=== PATIENT | female | born 1945 | race Caucasian/White ===

== ENCOUNTER 2017-07-09 18:21 | Inpatient (IN) | payer OTHER ==
[2017-07-09 21:51] LABS: BASOPHILS % (AUTO) 0.3 % (0.2-1.0); EOSINOPHILS # (AUTO) 0.8 x10^3/uL (0.0-0.2); EOSINOPHILS % (AUTO) 8.4 % (0.9-2.9); HEMATOCRIT 27.9 % (36.0-47.0); HEMOGLOBIN 9.8 g/dL (12.0-16.0); LYMPHOCYTES # (AUTO) 1.1 X10^3/uL (1.3-2.9); LYMPHOCYTES % (AUTO) 10.8 % (21.0-51.0); MEAN CORPUSCULAR HEMOGLOBIN 33.3 pg (27.0-34.0); MEAN CORPUSCULAR HGB CONC 35.1 g/dL (33.0-35.0); MEAN CORPUSCULAR VOLUME 94.9 fL (80.0-100.0); MEAN PLATELET VOLUME 7.2 fL (7.4-11.0); MONOCYTES # (AUTO) 0.7 x10^3/uL (0.3-0.8); MONOCYTES % (AUTO) 6.7 % (0.0-13.0); NEUTROPHILS # (AUTO) 7.4 x10^3/uL (2.2-4.8); NEUTROPHILS % (AUTO) 73.8 % (42.0-75.0); PLATELET COUNT 322 X10^3/uL (150.0-450.0); RED BLOOD COUNT 2.94 X10^6/uL (3.5-5.4); RED CELL DISTRIBUTION WIDTH 15.7 % (11.6-16.5)
[2017-07-09] MEDS: NS 1000 ML 1,000 ML IV SCH (22:15)
--- NOTE | 2017-07-09 22:22 | RAD ---
HISTORY: Acute shortness of breath. Study: Portable chest. Comparison: None. Findings: Tracheostomy tube that appears to be in good position. Right chest Port-A-Cath whose tip overlies the cavoatrial junction. The cardiac silhouette is unremarkable. No obvious focal consolidation, pleura l effusion, or pneumothorax. The bony thorax is unremarkable. IMPRESSION: No acute cardiopulmonary disease. Reported By:
[2017-07-09] MEDS ORDERED: MILK OF MAGNESIA PO PRN (22:24)
[2017-07-09] MEDS: NORCO 7.5/325 MG TAB PO PRN (22:30)
[2017-07-09 22:38] LABS: ALBUMIN 3.1 g/dL (3.4-5.0); CARBON DIOXIDE 21.6 mmol/L (21-32); COR CA(FOR HYPOALB) 8.7 mg/dL (8.5-10.1); CREATININE 5.21 mg/dL (0.55-1.02); TOTAL PROTEIN 9.1 g/dL (6.4-8.2)
[2017-07-09] MEDS ORDERED: STERILE WATER IRRIGATION IR ONE (23:07)
[2017-07-09 23:56] VITALS: BMI 29.5
[2017-07-10] MEDS: VISTARIL PO PRN ×3 (00:50→21:55)
[2017-07-10] MEDS ORDERED: HumuLIN R SUBCUT PRN (02:50)
[2017-07-10 04:13] LABS: BILIRUBIN,URINE NEGATIVE (NEGATIVE); BLOOD/HEMOGLOBIN,URINE 3+ (NEGATIVE); GLUCOSE, URINE NEGATIVE (NEGATIVE); KETONES,URINE NEGATIVE (NEGATIVE); LEUKOCYTE ESTERASE ,URINE 3+ (NEGATIVE); NITRITES,URINE NEGATIVE (NEGATIVE); PROTEIN,URINE 2+ (NEGATIVE); UROBILINOGEN,URINE NORMAL (NORMAL)
[2017-07-10 04:29] LABS: APPEARANCE,URINE CLOUDY (CLEAR); BACTERIA,URINE 3+ /HPF (NEGATIVE); COLOR,URINE YELLOW (YELLOW); RBC,URINE TNTC /HPF (NONE SEEN); SQUAMOUS EPITHELIAL CELL,UR MODERATE /HPF (NEGATIVE)
[2017-07-10] MEDS: NS 1000 ML 1,000 ML IV SCH ×3 (05:15→21:54)
[2017-07-10] MEDS: NYSTATIN POWDER TOP SCH ×3 (05:29→21:54)
[2017-07-10] MEDS ORDERED: NS 1000 ML 1,000 ML IV SCH ×2 (06:00)
[2017-07-10 06:39] LABS: BASOPHILS % (AUTO) 0.5 % (0.2-1.0); EOSINOPHILS # (AUTO) 0.9 x10^3/uL (0.0-0.2); EOSINOPHILS % (AUTO) 10.4 % (0.9-2.9); HEMATOCRIT 25.1 % (36.0-47.0); HEMOGLOBIN 8.9 g/dL (12.0-16.0); LYMPHOCYTES # (AUTO) 1.4 X10^3/uL (1.3-2.9); LYMPHOCYTES % (AUTO) 15.5 % (21.0-51.0); MEAN CORPUSCULAR HEMOGLOBIN 33.6 pg (27.0-34.0); MEAN CORPUSCULAR HGB CONC 35.5 g/dL (33.0-35.0); MEAN CORPUSCULAR VOLUME 94.7 fL (80.0-100.0); MEAN PLATELET VOLUME 7.4 fL (7.4-11.0); MONOCYTES # (AUTO) 0.8 x10^3/uL (0.3-0.8); MONOCYTES % (AUTO) 8.6 % (0.0-13.0); NEUTROPHILS # (AUTO) 5.9 x10^3/uL (2.2-4.8); PLATELET COUNT 273 X10^3/uL (150.0-450.0); RED BLOOD COUNT 2.65 X10^6/uL (3.5-5.4); RED CELL DISTRIBUTION WIDTH 15.4 % (11.6-16.5)
[2017-07-10 06:41] LABS: ALANINE AMINOTRANSFERASE 37 Units/L (12-78); ALBUMIN 2.7 g/dL (3.4-5.0); ALKALINE PHOSPHATASE 181 Units/L (46-116); ASPARTATE AMINO TRANSFERASE 26 Units/L (15-37); BLOOD UREA NITROGEN 131 mg/dL (7-18); CALCIUM 7.4 mg/dL (8.5-10.1); CARBON DIOXIDE 20.2 mmol/L (21-32); CHLORIDE 94 mmol/L (98-107); COR CA(FOR HYPOALB) 8.4 mg/dL (8.5-10.1); CREATININE 4.63 mg/dL (0.55-1.02); SODIUM 129 mmol/L (136-145); eGFR BLACK RACES 12 (>60); eGFR NON BLACK RACES 10 (>60)
--- NOTE | 2017-07-10 11:59 | DR.H&P ---
H&P - History & Physical for Day of: H&P Date: 07/09/17 - Chief Complaint Chief Complaint: WEAKNESS, DEHYDRATION - Allergies Allergies/Adverse Reactions: Allergies Allergy/AdvReac Type Severity Reaction Status Date / Time azithromycin Allergy Verified 07/09/17 21:28 ciprofloxacin [From Cipro] Allergy Verified 07/09/17 21:28 codeine Allergy Verified 07/09/17 21:28 levofloxacin Allergy Verified 07/09/17 21:28 shellfish derived Allergy Verified 07/09/17 21:28 - History of Present Illness History of Present Illness: PTIS 71 WF DIRECT ADMIT FROM [facility] WITH ACUTE ON CHRONIC RENAL FAILURE, HYPONATREMIA, DEHYDRATION. PT HAS COLOSTOMY S/P BOWEL RESECTION FROM PREVIOUS OBSTRUCTION. PT PASSES LARGE AMOUNT OF STOOL AND FLUID, PT DOES NOT INTAKE ENCOUGH PO LIQUIDS TO MAINTAIN HYDRATION PER NURSING STAFF. PT BASE LINE CREAT 1.7-2. PT HAS PMH OF LEFT BREAST CA, TRACHEOSTOMY, DM, HTN, OA AND ADULT FAILURE TO THRIVE. PT BILATERAL HIP PRESSURE ULCERS. NURSING STAFF REPORTS PT HAS POOR COMPLIANCE WITH PHYSICAL THERAPY, PT UNABLE TO CARE FOR HERSELF AT HOME. WILL CONTINUES WITH GENTLE HYDRATION FOR TREATMENT OF ELECTROLYTE IMBALANCE AND ACUTE ON CHRONIC RENAL INSUFF. - Past Medical History Past Medical History: Anemia, Arthritis, Diabetes, Hypertension, Renal Disease - Past Surgical History Surgical History: Bowel Resection, Hysterectomy, Mastectomy, Other (TRACHEOSTOMY ) - Family History Family Medical History: Diabetes Mellitus - Social History Does patient currently use any type of tobacco product: No Have you used tobacco products in the last 12 months: No Type of Tobacco Use: None Does any household member use tobacco: No Alcohol Use: None Drug Use: None - Medications Home Medications: Atorvastatin Calcium 20 mg PO HS 07/09/17 [History Confirmed 07/09/17] Diphenhydramine HCl [BENADRYL 25 MG TAB/CAP *] 25 mg PO Q4H PRN 07/09/17 [ History Confirmed 07/09/17] Doxepin HCl 50 mg PO HS 07/09/17 [History Confirmed 07/09/17] Escitalopram Oxalate [LEXAPRO 10 MG TAB *] 10 mg PO DAILY 07/09/17 [History Confirmed 07/09/17] Glimepiride 4 mg PO DAILY 07/09/17 [History Confirmed 07/09/17] Hydrocodone-Acet 7.5 mg/325 mg [NORCO 7.5 MG/325 MG *] 1 ea PO Q6H PRN 07/09/17 [History Confirmed 07/09/17] Insulin R (Regular) [HUMULIN R (REGULAR) INSULIN 10 ML VIAL *] 1 ea SUBCUT ACHS PRN 07/09/17 [History Confirmed 07/09/17] Ipratropium/Albuterol Nebule [DUONEB 0.5 MG/3 MG NEBULE *] 1 ea INH Q6H PRN [History Confirmed 07/09/17] Metoprolol Tartrate 25 mg PO BID 07/09/17 [History Confirmed 07/09/17] Misc Home Med [Patient's Home Medication] 30 ml PO BID 07/09/17 [History Confirmed 07/09/17] Montelukast Sodium [Singulair] 10 mg PO HS 07/09/17 [History Confirmed 07/09/17] Nystatin (Topical) [NYSTATIN TOP CRM *] 1 ea TOP DAILY 07/09/17 [History Confirmed 07/09/17] - Review of Systems Constitutional: Weakness Eyes: No Symptoms Reported ENT: No Symptoms Reported Respiratory: No Symptoms Reported Cardiovascular: No Symptoms Reported. denies: Edema Genitourinary: Incontinence Musculoskeletal: Back Pain Skin: Wound Neurological: Weakness. denies: Change in Speech, Confusion, Seizures - Physical Exam Vital Signs: Temperature 98.9 F Pulse Rate [Apical] 81 Respiratory Rate 20 Blood Pressure [Right Arm] 113/80 O2 Sat by Pulse Oximetry 100 Oriented: Normal Eyes: Normal Nose: Normal Throat: Normal Respiratory: RLL Diminished, LLL Diminished Cardiovascular: Normal. negative: Edema : Normal Auscultation: Bowel Sounds: Normal Palpation: Normal Tenderness: Normal Skin: Wound (BILATERAL POSTERIOR HIP PRESSURE ULCERS STAGE III), Other ( COLOSTOMY PRESENT WITH PINK STOMA) Musculoskeletal: Back:Lumbar, Motor Deficit (LOWER EXTREMITY WEAKNESS), Sensory Deficit, Instability Mood Description: Calm Speech Pattern: Clear, Appropriate - Assessment/Plan (1) Acute on chronic renal failure Status: Acute Plan: ADMIT, GENTLE IV HYDRAITON, ENCOURAGE PO INTAKE. COLOSTOMY CARE, WOUND CULTURES ON ADMISSION AND WOUND CARE. GARCIA WITH STRICT I & OS, RESUME HOME MEDICATION. UA ON ADMISSION, REPEAT AM CBC CMP. CXR ON ADMISSION (2) Hyponatremia Status: Acute (3) Diabetes Status: Acute (4) Hypertension Status: Acute (5) HX: breast cancer Status: Acute (6) Colostomy status Status: Acute (7) Pressure ulcer Status: Acute
--- NOTE | 2017-07-10 12:09 | PCM.PROG ---
Progress Note - Progress Note for Day of Date: 07/10/17 - Subjective Subjective: 71 WF DIRECT ADMIT ON 07/09 WITH ACUTE ON CHRONIC RENAL FAILURE, PT HAS SLIGHTLY IMPROVED BUN/CREAT THIS AM. CONTINUED HYPONATREMIA. PT DENIES PAIN THIS AM. ENCOURAGED TO INCREASE PO FLUID INTAKE. PT DENIES ANY NAUSEA OR VOMITING. URINE CULTURE PENDING, PT STARTED ON IV ROCEPHIN, CONTINUE IV HYDRATION, HOME MEDS, REPEAT AM LABS, I &OS - Past Medical Family Social History Past Med/Fam/Surg Hx: No changes since H&P Allergies: Allergies azithromycin Allergy (Verified 07/09/17 21:) ciprofloxacin [From Cipro] Allergy (Verified 07/09/17:) codeine Allergy (Verified 07/09/17:) levofloxacin Allergy (Verified 07/09/17:) shellfish derived Allergy (Verified 07/09/17:) - Review of Systems ROS: No change since H&P - Vital Signs and I&O's Vital Signs: Temperature 98.9 F Pulse Rate [Apical] 81 Respiratory Rate 20 Blood Pressure [Right Arm] 113/80 O2 Sat by Pulse Oximetry 100 Intake and Output: Intake & Output 07/08/17 07/09/17 07/10/17 07/11/17 11:59 11:59 11:59 11:59 Intake Total 1106 Output Total 450 Balance 656 - Physical Exam Oriented: Normal Eyes: Normal Ear: Normal Nose: Normal Throat: Normal Respiratory: Diminished Cardiovascular: Normal. negative: Edema : Normal Auscultation: Bowel Sounds: Normal Tenderness: Normal Skin: Wound (BILATERAL POSTERIOR HIP PRESSURE ULCERS STAGE III), Other ( COLOSTOMY PRESENT WITH PINK STOMA) Musculoskeletal: Back:Lumbar, Motor Deficit (LOWER EXTREMITY WEAKNESS), Sensory Deficit, Instability Mood Description: Calm Speech Pattern: Clear, Appropriate - Laboratory and Diagnostics Result Diagrams: 07/10/17 06:07 07/10/17 06:07 Labs: 07/09/17 22:17 Hip - Left Gram Stain - Final 07/09/17 22:17 Hip - Right Gram Stain - Final Laboratory WBC 9.0 X10^3/uL (3.6-10.0) 07/10/17 06:07 RBC 2.65 X10^6/uL (3.5-5.4) L 07/10/17 06:07 Hgb 8.9 g/dL (12.0-16.0) L 07/10/17 06:07 Hct 25.1 % (36.0-47.0) L 07/10/17 06:07 MCV 94.7 fL (80.0-100.0) 07/10/17 06:07 MCH 33.6 pg (27.0-34.0) 07/10/17 06:07 MCHC 35.5 g/dL (33.0-35.0) H 07/10/17 06:07 RDW 15.4 % (11.6-16.5) 07/10/17 06:07 Plt Count 273 X10^3/uL (150.0-450.0) 07/10/17 06:07 MPV 7.4 fL (7.4-11.0) 07/10/17 06:07 Neut % (Auto) 65.0 % (42.0-75.0) 07/10/17 06:07 Lymph % (Auto) 15.5 % (21.0-51.0) L 07/10/17 06:07 [place] % (Auto) 8.6 % (0.0-13.0) 07/10/17 06:07 Eos % (Auto) 10.4 % (0.9-2.9) H 07/10/17 06:07 Baso % (Auto) 0.5 % (0.2-1.0) 07/10/17 06:07 Neut # (Auto) 5.9 x10^3/uL (2.2-4.8) H 07/10/17 06:07 Lymph # (Auto) 1.4 X10^3/uL (1.3-2.9) 07/10/17 06:07 [place] # (Auto) 0.8 x10^3/uL (0.3-0.8) 07/10/17 06:07 Eos # (Auto) 0.9 x10^3/uL (0.0-0.2) H 07/10/17 06:07 Baso # (Auto) 0.0 X10^3/uL (0.0-0.1) 07/10/17 06:07 Absolute Nucleated RBC 0.0 /100WBC 07/10/17 06:07 Sodium 129 mmol/L (136-145) L 07/10/17 06:07 Corrected Sodium TNP 07/10/17 06:07 Potassium 4.3 mmol/L (3.5-5.1) 07/10/17 06:07 Chloride 94 mmol/L (98-107) L 07/10/17 06:07 Carbon Dioxide 20.2 mmol/L (21-32) L 07/10/17 06:07 BUN 131 mg/dL (7-18) H 07/10/17 06:07 Creatinine 4.63 mg/dL (0.55-1.02) H 07/10/17 06:07 Est GFR (MDRD) Af Amer 12 (>60) L 07/10/17 06:07 Est GFR (MDRD) Non-Af 10 (>60) L 07/10/17 06:07 Glucose 66 mg/dL (65-99) 07/10/17 06:07 POC Glucose (mg/dL) 73 mg/dL (65-99) 07/10/17 05:42 Calcium 7.4 mg/dL (8.5-10.1) L 07/10/17 06:07 Corrected Calcium 8.4 mg/dL (8.5-10.1) L 07/10/17 06:07 Total Bilirubin 0.30 mg/dL (0.2-1.0) 07/10/17 06:07 AST 26 Units/L (15-37) 07/10/17 06:07 ALT 37 Units/L (12-78) 07/10/17 06:07 Alkaline Phosphatase 181 Units/L (46-116) H 07/10/17 06:07 Total Protein 8.0 g/dL (6.4-8.2) 07/10/17 06:07 Albumin 2.7 g/dL (3.4-5.0) L 07/10/17 06:07 Globulin 5.3 g/dL (2.5-4.5) H 07/10/17 06:07 Albumin/Globulin Ratio 0.5 Ratio (1.1-2.1) L 07/10/17 06:07 Specimen Type Catherized urine 07/10/17 03:58 Urine Color Yellow (YELLOW) 07/10/17 03:58 Urine Appearance Cloudy (CLEAR) 07/10/17 03:58 Urine pH 6.0 (5.0 - 8.0) 07/10/17 03:58 Ur Specific [place] 1.010 (1.000-1.030) 07/10/17 03:58 Urine Protein 2+ (NEGATIVE) 07/10/17 03:58 Urine Glucose (UA) Negative (NEGATIVE) 07/10/17 03:58 Urine Ketones Negative (NEGATIVE) 07/10/17 03:58 Urine Occult Blood 3+ (NEGATIVE) 07/10/17 03:58 Urine Nitrite Negative (NEGATIVE) 07/10/17 03:58 Urine Bilirubin Negative (NEGATIVE) 07/10/17 03:58 Urine Urobilinogen Normal (NORMAL) 07/10/17 03:58 Ur Leukocyte Esterase 3+ (NEGATIVE) 07/10/17 03:58 Urine RBC Tntc /HPF (NONE SEEN) 07/10/17 03:58 Urine WBC Tntc /HPF (NONE SEEN) 07/10/17 03:58 Ur Squamous Epith Cells Moderate /HPF (NEGATIVE) 07/10/17 03:58 Urine Bacteria 3+ /HPF (NEGATIVE) 07/10/17 03:58 Ur Culture Indicated? Yes/culture set up 07/10/17 03:58 - Plan (1) Acute on chronic renal failure Status: Acute Plan: GENTLE IV HYDRAITON, ENCOURAGE PO INTAKE. COLOSTOMY CARE, WOUND CULTURES ON ADMISSION AND WOUND CARE. GARCIA WITH STRICT I & OS, RESUME HOME MEDICATION. UA ON ADMISSION, CULTURE PENDING STARTED ON IV ROCEPHIN. REPEAT AM CBC CMP. CXR ON ADMISSION (2) Hyponatremia Status: Acute (3) Diabetes Status: Acute (4) Hypertension Status: Acute (5) HX: breast cancer Status: Acute (6) Colostomy status Status: Acute (7) Pressure ulcer Status: Acute
[2017-07-10] MEDS: ROCEPHIN VIAL 1 GM 1 GM in NS 100 ML IV + SPIKE MINIBAG* 100 ML IV SCH (13:00)
[2017-07-10] MEDS ORDERED: ROCEPHIN 1 GM IV PREMIX 1 GM/50 ML IV.SOLN. IV ONE (13:32)
[2017-07-10] MEDS ORDERED: DOXEPIN HCL 50 MG PO SCH (21:00)
[2017-07-10] MEDS: LIPITOR TAB 20 MG PO SCH (21:54)
[2017-07-10] MEDS: SNACK - Diabetic Appropriate PO SCH (21:54)
[2017-07-10] MEDS: COLACE CAP 100 MG PO SCH (21:54)
[2017-07-10] MEDS: LOPRESSOR TAB 25 MG PO SCH (21:54)
[2017-07-10] MEDS: SINEquan PO SCH (21:55)
[2017-07-10] MEDS: SINGULAIR TAB 10 MG PO SCH (21:55)
[2017-07-11] MEDS ORDERED: BENADRYL CAP 50 MG PO ONE (03:32)
[2017-07-11] MEDS: NORCO 7.5/325 MG TAB PO PRN ×3 (03:41→19:02)
[2017-07-11] MEDS ORDERED: BENADRYL CAP/TAB 25 MG PO ONE ×2 (03:44→03:46)
[2017-07-11 05:33] LABS: BASOPHILS % (AUTO) 0.4 % (0.2-1.0); EOSINOPHILS # (AUTO) 0.6 x10^3/uL (0.0-0.2); EOSINOPHILS % (AUTO) 9.2 % (0.9-2.9); HEMATOCRIT 22.4 % (36.0-47.0); HEMOGLOBIN 7.8 g/dL (12.0-16.0); LYMPHOCYTES # (AUTO) 0.8 X10^3/uL (1.3-2.9); LYMPHOCYTES % (AUTO) 12.9 % (21.0-51.0); MEAN CORPUSCULAR HEMOGLOBIN 33.5 pg (27.0-34.0); MEAN CORPUSCULAR HGB CONC 34.8 g/dL (33.0-35.0); MEAN CORPUSCULAR VOLUME 96.3 fL (80.0-100.0); MEAN PLATELET VOLUME 7.5 fL (7.4-11.0); MONOCYTES # (AUTO) 0.6 x10^3/uL (0.3-0.8); MONOCYTES % (AUTO) 9.4 % (0.0-13.0); NEUTROPHILS # (AUTO) 4.4 x10^3/uL (2.2-4.8); NEUTROPHILS % (AUTO) 68.1 % (42.0-75.0); PLATELET COUNT 235 X10^3/uL (150.0-450.0); RED BLOOD COUNT 2.32 X10^6/uL (3.5-5.4); RED CELL DISTRIBUTION WIDTH 15.1 % (11.6-16.5); WHITE BLOOD COUNT 6.4 X10^3/uL (3.6-10.0)
[2017-07-11 05:41] LABS: ALBUMIN 2.4 g/dL (3.4-5.0); CARBON DIOXIDE 21.2 mmol/L (21-32); COR CA(FOR HYPOALB) 8.3 mg/dL (8.5-10.1); CREATININE 3.57 mg/dL (0.55-1.02); TOTAL PROTEIN 7.1 g/dL (6.4-8.2)
[2017-07-11 06:09] LABS: PLATELET MORPHOLOGY COMMENT NORMAL (NORMAL)
[2017-07-11] MEDS ORDERED: AQUAPHOR TOP PRN (06:17)
[2017-07-11] MEDS: NS 1000 ML 1,000 ML IV SCH ×2 (08:08→19:50)
[2017-07-11] MEDS ORDERED: LEXAPRO ONE (08:35)
[2017-07-11] MEDS: AMARYL TAB 4 MG PO SCH (08:45)
[2017-07-11] MEDS: ROCEPHIN VIAL 1 GM 1 GM in NS 100 ML IV + SPIKE MINIBAG* 100 ML IV SCH (08:46)
[2017-07-11] MEDS: LEXAPRO PO SCH (08:46)
[2017-07-11] MEDS: LOPRESSOR TAB 25 MG PO SCH (08:47)
[2017-07-11] MEDS: NYSTATIN CREAM TOP SCH (08:48)
[2017-07-11] MEDS: BENADRYL CAP/TAB 25 MG PO PRN ×2 (12:38→20:57)
[2017-07-11] MEDS: DUONEB 0.5 MG/3 MG NEB PRN (13:20)
[2017-07-11] MEDS ORDERED: HYDROGEN PEROXIDE 3% ONE (13:31)
[2017-07-11] MEDS: NYSTATIN POWDER TOP SCH ×2 (14:14→20:57)
[2017-07-11] MEDS: SINEquan PO SCH (20:55)
[2017-07-11] MEDS: SINGULAIR TAB 10 MG PO SCH (20:55)
[2017-07-11] MEDS: LIPITOR TAB 20 MG PO SCH (20:56)
[2017-07-11] MEDS: COLACE CAP 100 MG PO SCH (20:56)
[2017-07-11] MEDS: SNACK - Diabetic Appropriate PO SCH (20:57)
[2017-07-12] MEDS: LOPRESSOR TAB 25 MG PO SCH ×3 (02:05→20:59)
[2017-07-12 06:13] LABS: BASOPHILS % (AUTO) 0.5 % (0.2-1.0); EOSINOPHILS # (AUTO) 0.6 x10^3/uL (0.0-0.2); EOSINOPHILS % (AUTO) 10.5 % (0.9-2.9); HEMOGLOBIN 8.4 g/dL (12.0-16.0); LYMPHOCYTES # (AUTO) 0.7 X10^3/uL (1.3-2.9); LYMPHOCYTES % (AUTO) 12.3 % (21.0-51.0); MEAN CORPUSCULAR HEMOGLOBIN 33.9 pg (27.0-34.0); MEAN CORPUSCULAR HGB CONC 35.1 g/dL (33.0-35.0); MEAN CORPUSCULAR VOLUME 96.5 fL (80.0-100.0); MEAN PLATELET VOLUME 6.9 fL (7.4-11.0); MONOCYTES # (AUTO) 0.6 x10^3/uL (0.3-0.8); MONOCYTES % (AUTO) 10.5 % (0.0-13.0); NEUTROPHILS # (AUTO) 3.8 x10^3/uL (2.2-4.8); NEUTROPHILS % (AUTO) 66.2 % (42.0-75.0); PLATELET COUNT 215 X10^3/uL (150.0-450.0); RED BLOOD COUNT 2.48 X10^6/uL (3.5-5.4); RED CELL DISTRIBUTION WIDTH 15.4 % (11.6-16.5); WHITE BLOOD COUNT 5.7 X10^3/uL (3.6-10.0)
[2017-07-12 06:26] LABS: ALANINE AMINOTRANSFERASE 27 Units/L (12-78); ALBUMIN 2.3 g/dL (3.4-5.0); ALKALINE PHOSPHATASE 141 Units/L (46-116); ASPARTATE AMINO TRANSFERASE 20 Units/L (15-37); BLOOD UREA NITROGEN 83 mg/dL (7-18); CALCIUM 7.2 mg/dL (8.5-10.1); CARBON DIOXIDE 18.8 mmol/L (21-32); CHLORIDE 104 mmol/L (98-107); COR CA(FOR HYPOALB) 8.6 mg/dL (8.5-10.1); CREATININE 2.72 mg/dL (0.55-1.02); SODIUM 136 mmol/L (136-145); TOTAL PROTEIN 6.9 g/dL (6.4-8.2); eGFR BLACK RACES 22 (>60); eGFR NON BLACK RACES 18 (>60)
[2017-07-12] MEDS ORDERED: LEXAPRO ONE (09:23)
[2017-07-12] MEDS: LEXAPRO PO SCH (09:26)
[2017-07-12] MEDS: ROCEPHIN VIAL 1 GM 1 GM in NS 100 ML IV + SPIKE MINIBAG* 100 ML IV SCH (09:26)
[2017-07-12] MEDS: AMARYL TAB 4 MG PO SCH (09:27)
[2017-07-12] MEDS: NYSTATIN POWDER TOP SCH ×2 (09:30→21:00)
[2017-07-12] MEDS: DUONEB 0.5 MG/3 MG NEB PRN (13:20)
[2017-07-12] MEDS: NS 1000 ML 1,000 ML IV SCH (13:34)
[2017-07-12] MEDS ORDERED: POTASSIUM CHL 60 MEQ/NS 0.45% 500 ML IV PRN ×2 (15:20→16:15)
[2017-07-12] MEDS ORDERED: K-RIDER 10 MEQ/NS 100 ML 10 MEQ/100 ML BAG IV PRN ×2 (15:20→16:15)
[2017-07-12] MEDS ORDERED: POTASSIUM CHL 40 MEQ/NS 0.45% 500 ML IV PRN ×2 (15:20→16:15)
[2017-07-12] MEDS ORDERED: POTASSIUM CHLORIDE LIQ 20 MEQ UDC PO PRN ×2 (15:20→16:15)
[2017-07-12] MEDS ORDERED: MAGNESIUM SULFATE 1 GM/100 mL PREMIX 1 GM/100 ML BAG IV PRN (16:15)
[2017-07-12] MEDS ORDERED: K-LYTE EFFERVESCENT PO PRN (16:15)
[2017-07-12] MEDS: NORCO 7.5/325 MG TAB PO PRN (16:17)
[2017-07-12] MEDS: K-LYTE EFFERVESCENT PO PRN (16:19)
[2017-07-12] MEDS: BENADRYL CAP/TAB 25 MG PO PRN ×2 (16:19→21:00)
[2017-07-12] MEDS: MAGNESIUM SULFATE 1 GM/100 mL PREMIX 1 GM/100 ML BAG IV PRN ×3 (17:06→21:09)
[2017-07-12] MEDS: SNACK - Diabetic Appropriate PO SCH (20:02)
[2017-07-12] MEDS: COLACE CAP 100 MG PO SCH (20:59)
[2017-07-12] MEDS: LIPITOR TAB 20 MG PO SCH (21:00)
[2017-07-12] MEDS: SINGULAIR TAB 10 MG PO SCH (21:00)
[2017-07-12] MEDS: SINEquan PO SCH (21:00)
[2017-07-13] MEDS: MAGNESIUM SULFATE 1 GM/100 mL PREMIX 1 GM/100 ML BAG IV PRN
[2017-07-13] MEDS: K-LYTE EFFERVESCENT PO PRN (03:50)
[2017-07-13 06:08] LABS: BASOPHILS % (AUTO) 0.7 % (0.2-1.0); EOSINOPHILS # (AUTO) 0.5 x10^3/uL (0.0-0.2); EOSINOPHILS % (AUTO) 9.5 % (0.9-2.9); HEMATOCRIT 21.7 % (36.0-47.0); HEMOGLOBIN 7.5 g/dL (12.0-16.0); LYMPHOCYTES # (AUTO) 0.7 X10^3/uL (1.3-2.9); LYMPHOCYTES % (AUTO) 13.3 % (21.0-51.0); MEAN CORPUSCULAR HEMOGLOBIN 33.4 pg (27.0-34.0); MEAN CORPUSCULAR HGB CONC 34.5 g/dL (33.0-35.0); MEAN CORPUSCULAR VOLUME 96.9 fL (80.0-100.0); MEAN PLATELET VOLUME 7.4 fL (7.4-11.0); MONOCYTES # (AUTO) 0.6 x10^3/uL (0.3-0.8); MONOCYTES % (AUTO) 10.2 % (0.0-13.0); NEUTROPHILS # (AUTO) 3.7 x10^3/uL (2.2-4.8); NEUTROPHILS % (AUTO) 66.3 % (42.0-75.0); PLATELET COUNT 195 X10^3/uL (150.0-450.0); RED BLOOD COUNT 2.24 X10^6/uL (3.5-5.4); RED CELL DISTRIBUTION WIDTH 15.5 % (11.6-16.5); WHITE BLOOD COUNT 5.6 X10^3/uL (3.6-10.0)
[2017-07-13 06:18] LABS: ALANINE AMINOTRANSFERASE 26 Units/L (12-78); ALBUMIN 2.2 g/dL (3.4-5.0); ALKALINE PHOSPHATASE 131 Units/L (46-116); ASPARTATE AMINO TRANSFERASE 33 Units/L (15-37); BLOOD UREA NITROGEN 56 mg/dL (7-18); CALCIUM 7.1 mg/dL (8.5-10.1); CARBON DIOXIDE 21.1 mmol/L (21-32); CHLORIDE 106 mmol/L (98-107); COR CA(FOR HYPOALB) 8.5 mg/dL (8.5-10.1); MAGNESIUM 2.6 mg/dL (1.7-2.9); SODIUM 137 mmol/L (136-145); TOTAL PROTEIN 6.6 g/dL (6.4-8.2); eGFR BLACK RACES 28 (>60); eGFR NON BLACK RACES 23 (>60)
[2017-07-13 06:26] LABS: PLATELET MORPHOLOGY COMMENT NORMAL (NORMAL)
[2017-07-13] MEDS ORDERED: LEXAPRO ONE (07:48)
[2017-07-13] MEDS: AMARYL TAB 4 MG PO SCH (07:59)
[2017-07-13] MEDS: ROCEPHIN VIAL 1 GM 1 GM in NS 100 ML IV + SPIKE MINIBAG* 100 ML IV SCH (08:00)
[2017-07-13] MEDS: BENADRYL CAP/TAB 25 MG PO PRN ×2 (08:00→20:30)
[2017-07-13] MEDS: NYSTATIN CREAM TOP SCH ×2 (08:00→20:30)
[2017-07-13] MEDS: LEXAPRO PO SCH (08:00)
[2017-07-13] MEDS: NS 1000 ML 1,000 ML IV SCH (08:01)
[2017-07-13] MEDS: DUONEB 0.5 MG/3 MG NEB PRN (14:15)
[2017-07-13] MEDS: LOPRESSOR TAB 25 MG PO SCH ×2 (15:25→20:29)
[2017-07-13] MEDS: NYSTATIN POWDER TOP SCH ×2 (15:25→20:29)
[2017-07-13] MEDS ORDERED: HYDROGEN PEROXIDE 3% ONE (17:00)
[2017-07-13] MEDS: SNACK - Diabetic Appropriate PO SCH (20:28)
[2017-07-13] MEDS: LIPITOR TAB 20 MG PO SCH (20:28)
[2017-07-13] MEDS: COLACE CAP 100 MG PO SCH (20:28)
[2017-07-13] MEDS: SINGULAIR TAB 10 MG PO SCH (20:29)
[2017-07-13] MEDS: SINEquan PO SCH (20:29)
[2017-07-14] MEDS: BENADRYL CAP/TAB 25 MG PO PRN ×4 (01:30→20:43)
[2017-07-14] MEDS: NORCO 7.5/325 MG TAB PO PRN ×3 (01:30→14:30)
[2017-07-14] MEDS: NS 1000 ML 1,000 ML IV SCH ×3 (03:40→22:26)
[2017-07-14 05:35] LABS: BASOPHILS # (AUTO) 0.1 X10^3/uL (0.0-0.1); BASOPHILS % (AUTO) 0.9 % (0.2-1.0); EOSINOPHILS # (AUTO) 0.6 x10^3/uL (0.0-0.2); EOSINOPHILS % (AUTO) 10.7 % (0.9-2.9); LYMPHOCYTES # (AUTO) 0.8 X10^3/uL (1.3-2.9); LYMPHOCYTES % (AUTO) 14.3 % (21.0-51.0); MEAN CORPUSCULAR HEMOGLOBIN 34.3 pg (27.0-34.0); MEAN CORPUSCULAR HGB CONC 35.2 g/dL (33.0-35.0); MEAN CORPUSCULAR VOLUME 97.4 fL (80.0-100.0); MEAN PLATELET VOLUME 7.3 fL (7.4-11.0); MONOCYTES # (AUTO) 0.6 x10^3/uL (0.3-0.8); MONOCYTES % (AUTO) 11.1 % (0.0-13.0); NEUTROPHILS # (AUTO) 3.5 x10^3/uL (2.2-4.8); PLATELET COUNT 180 X10^3/uL (150.0-450.0); RED CELL DISTRIBUTION WIDTH 15.3 % (11.6-16.5); WHITE BLOOD COUNT 5.5 X10^3/uL (3.6-10.0)
[2017-07-14 05:39] LABS: ALANINE AMINOTRANSFERASE 25 Units/L (12-78); ALKALINE PHOSPHATASE 120 Units/L (46-116); ASPARTATE AMINO TRANSFERASE 23 Units/L (15-37); BLOOD UREA NITROGEN 40 mg/dL (7-18); CALCIUM 6.9 mg/dL (8.5-10.1); CARBON DIOXIDE 21.3 mmol/L (21-32); CHLORIDE 104 mmol/L (98-107); COR CA(FOR HYPOALB) 8.5 mg/dL (8.5-10.1); CREATININE 2.08 mg/dL (0.55-1.02); eGFR BLACK RACES 30 (>60); eGFR NON BLACK RACES 25 (>60)
[2017-07-14 05:55] LABS: SODIUM 135 mmol/L (136-145)
[2017-07-14 06:11] LABS: HEMATOCRIT 19.5 % (36.0-47.0); HEMOGLOBIN 6.9 g/dL (12.0-16.0)
[2017-07-14] MEDS: K-LYTE EFFERVESCENT PO PRN ×2 (06:25→11:41)
[2017-07-14] MEDS ORDERED: LEXAPRO ONE (08:16)
[2017-07-14] MEDS: LEXAPRO PO SCH (08:23)
[2017-07-14] MEDS: ROCEPHIN VIAL 1 GM 1 GM in NS 100 ML IV + SPIKE MINIBAG* 100 ML IV SCH (08:24)
[2017-07-14] MEDS: AMARYL TAB 4 MG PO SCH (08:24)
[2017-07-14] MEDS: LOPRESSOR TAB 25 MG PO SCH ×2 (08:25→20:42)
[2017-07-14] MEDS: NYSTATIN POWDER TOP SCH ×2 (08:28→20:43)
[2017-07-14] MEDS: NS 500 ML IV 500 ML IV SCH (15:00)
[2017-07-14] MEDS: NYSTATIN CREAM TOP SCH (18:27)
[2017-07-14] MEDS: LIPITOR TAB 20 MG PO SCH (20:42)
[2017-07-14] MEDS: COLACE CAP 100 MG PO SCH (20:42)
[2017-07-14] MEDS: SNACK - Diabetic Appropriate PO SCH (20:42)
[2017-07-14] MEDS: SINGULAIR TAB 10 MG PO SCH (20:43)
[2017-07-14] MEDS: SINEquan PO SCH (20:43)
[2017-07-14 23:34] LABS: HEMATOCRIT 26.7 % (36.0-47.0); HEMOGLOBIN 9.2 g/dL (12.0-16.0)
[2017-07-15 05:18] LABS: BASOPHILS % (AUTO) 0.5 % (0.2-1.0); EOSINOPHILS # (AUTO) 0.5 x10^3/uL (0.0-0.2); EOSINOPHILS % (AUTO) 9.7 % (0.9-2.9); HEMATOCRIT 24.6 % (36.0-47.0); HEMOGLOBIN 8.5 g/dL (12.0-16.0); LYMPHOCYTES # (AUTO) 0.7 X10^3/uL (1.3-2.9); LYMPHOCYTES % (AUTO) 12.9 % (21.0-51.0); MEAN CORPUSCULAR HEMOGLOBIN 32.3 pg (27.0-34.0); MEAN CORPUSCULAR HGB CONC 34.3 g/dL (33.0-35.0); MEAN PLATELET VOLUME 7.2 fL (7.4-11.0); MONOCYTES # (AUTO) 0.5 x10^3/uL (0.3-0.8); MONOCYTES % (AUTO) 9.6 % (0.0-13.0); NEUTROPHILS # (AUTO) 3.5 x10^3/uL (2.2-4.8); NEUTROPHILS % (AUTO) 67.3 % (42.0-75.0); PLATELET COUNT 178 X10^3/uL (150.0-450.0); RED BLOOD COUNT 2.62 X10^6/uL (3.5-5.4); RED CELL DISTRIBUTION WIDTH 16.8 % (11.6-16.5); WHITE BLOOD COUNT 5.2 X10^3/uL (3.6-10.0)
[2017-07-15 05:31] LABS: ALANINE AMINOTRANSFERASE 32 Units/L (12-78); ALBUMIN 1.8 g/dL (3.4-5.0); ALKALINE PHOSPHATASE 124 Units/L (46-116); ASPARTATE AMINO TRANSFERASE 32 Units/L (15-37); BLOOD UREA NITROGEN 28 mg/dL (7-18); CALCIUM 6.9 mg/dL (8.5-10.1); CARBON DIOXIDE 22.6 mmol/L (21-32); CHLORIDE 104 mmol/L (98-107); COR CA(FOR HYPOALB) 8.7 mg/dL (8.5-10.1); CREATININE 1.79 mg/dL (0.55-1.02); SODIUM 136 mmol/L (136-145); TOTAL PROTEIN 5.8 g/dL (6.4-8.2); eGFR BLACK RACES 36 (>60); eGFR NON BLACK RACES 30 (>60)
[2017-07-15] MEDS ORDERED: MILK OF MAGNESIA PO PRN (08:25)
[2017-07-15] MEDS ORDERED: LEXAPRO ONE (08:28)
[2017-07-15] MEDS: LEXAPRO PO SCH (08:31)
[2017-07-15] MEDS: AMARYL TAB 4 MG PO SCH (08:31)
[2017-07-15] MEDS: ROCEPHIN VIAL 1 GM 1 GM in NS 100 ML IV + SPIKE MINIBAG* 100 ML IV SCH (08:31)
[2017-07-15] MEDS: BENADRYL CAP/TAB 25 MG PO PRN ×3 (08:31→20:26)
[2017-07-15] MEDS: LOPRESSOR TAB 25 MG PO SCH ×2 (08:31→20:26)
[2017-07-15] MEDS: NYSTATIN POWDER TOP SCH ×2 (08:32→20:27)
[2017-07-15] MEDS: NYSTATIN CREAM TOP SCH (08:32)
[2017-07-15] MEDS ORDERED: MILK OF MAGNESIA PO SCH (09:00)
[2017-07-15] MEDS ORDERED: DULCOLAX SUPPOSITORY 10 MG RECTAL SCH (09:00)
[2017-07-15] MEDS ORDERED: HYDROGEN PEROXIDE 3% ONE (09:11)
[2017-07-15] MEDS: NS 500 ML IV 500 ML IV SCH (18:13)
[2017-07-15] MEDS: SNACK - Diabetic Appropriate PO SCH (19:53)
[2017-07-15] MEDS: DUONEB 0.5 MG/3 MG NEB PRN (20:20)
[2017-07-15] MEDS: NORCO 7.5/325 MG TAB PO PRN (20:25)
[2017-07-15] MEDS: COLACE CAP 100 MG PO SCH (20:26)
[2017-07-15] MEDS: SINEquan PO SCH (20:26)
[2017-07-15] MEDS: LIPITOR TAB 20 MG PO SCH (20:26)
[2017-07-15] MEDS: SINGULAIR TAB 10 MG PO SCH (20:26)
[2017-07-16] MEDS: BENADRYL CAP/TAB 25 MG PO PRN ×2 (00:23→09:15)
[2017-07-16 05:23] LABS: BASOPHILS % (AUTO) 0.4 % (0.2-1.0); EOSINOPHILS # (AUTO) 0.6 x10^3/uL (0.0-0.2); EOSINOPHILS % (AUTO) 10.3 % (0.9-2.9); HEMATOCRIT 27.3 % (36.0-47.0); HEMOGLOBIN 9.5 g/dL (12.0-16.0); LYMPHOCYTES # (AUTO) 0.7 X10^3/uL (1.3-2.9); LYMPHOCYTES % (AUTO) 12.4 % (21.0-51.0); MEAN CORPUSCULAR HEMOGLOBIN 32.4 pg (27.0-34.0); MEAN CORPUSCULAR HGB CONC 34.6 g/dL (33.0-35.0); MEAN CORPUSCULAR VOLUME 93.6 fL (80.0-100.0); MEAN PLATELET VOLUME 7.1 fL (7.4-11.0); MONOCYTES # (AUTO) 0.7 x10^3/uL (0.3-0.8); MONOCYTES % (AUTO) 11.6 % (0.0-13.0); NEUTROPHILS # (AUTO) 3.7 x10^3/uL (2.2-4.8); NEUTROPHILS % (AUTO) 65.3 % (42.0-75.0); PLATELET COUNT 207 X10^3/uL (150.0-450.0); RED BLOOD COUNT 2.92 X10^6/uL (3.5-5.4); RED CELL DISTRIBUTION WIDTH 16.5 % (11.6-16.5); WHITE BLOOD COUNT 5.6 X10^3/uL (3.6-10.0)
[2017-07-16 05:24] LABS: BILIRUBIN,URINE NEGATIVE (NEGATIVE); BLOOD/HEMOGLOBIN,URINE 2+ (NEGATIVE); GLUCOSE, URINE NEGATIVE (NEGATIVE); KETONES,URINE NEGATIVE (NEGATIVE); LEUKOCYTE ESTERASE ,URINE 3+ (NEGATIVE); NITRITES,URINE NEGATIVE (NEGATIVE); PROTEIN,URINE 2+ (NEGATIVE); UROBILINOGEN,URINE NORMAL (NORMAL)
[2017-07-16 05:40] LABS: APPEARANCE,URINE CLOUDY (CLEAR); BACTERIA,URINE TRACE /HPF (NEGATIVE); COLOR,URINE PALE YELLOW (YELLOW); SQUAMOUS EPITHELIAL CELL,UR RARE /HPF (NEGATIVE); YEAST,URINE NUMEROUS /HPF (NEGATIVE)
[2017-07-16 05:43] LABS: ALANINE AMINOTRANSFERASE 47 Units/L (12-78); ALKALINE PHOSPHATASE 144 Units/L (46-116); ASPARTATE AMINO TRANSFERASE 52 Units/L (15-37); BLOOD UREA NITROGEN 22 mg/dL (7-18); CALCIUM 7.4 mg/dL (8.5-10.1); CARBON DIOXIDE 24.3 mmol/L (21-32); CHLORIDE 103 mmol/L (98-107); CREATININE 1.54 mg/dL (0.55-1.02); SODIUM 137 mmol/L (136-145); TOTAL PROTEIN 6.5 g/dL (6.4-8.2); eGFR BLACK RACES 43 (>60); eGFR NON BLACK RACES 35 (>60)
[2017-07-16] MEDS ORDERED: LEXAPRO ONE (08:22)
[2017-07-16] MEDS: AMARYL TAB 4 MG PO SCH (09:10)
[2017-07-16] MEDS: LEXAPRO PO SCH (09:10)
[2017-07-16] MEDS: ROCEPHIN VIAL 1 GM 1 GM in NS 100 ML IV + SPIKE MINIBAG* 100 ML IV SCH (09:10)
[2017-07-16] MEDS: NYSTATIN POWDER TOP SCH (09:11)
[2017-07-16] MEDS: NORCO 7.5/325 MG TAB PO PRN (09:15)
[2017-07-16] MEDS: NYSTATIN CREAM TOP SCH (09:41)
[2017-07-16] MEDS: DUONEB 0.5 MG/3 MG NEB PRN (09:45)
[2017-07-16] MEDS: LOPRESSOR TAB 25 MG PO SCH (11:15)
[2017-07-16 11:19] VITALS: BP 132/63
== END 2017-07-16 12:10 | DRG 684 ==
LOC: ICU 18:21
PROVIDERS: ADMIT Internal Medicine; ATTEND Internal Medicine
DX: N17.8 Other acute kidney failure (principal); E86.0 Dehydration; N18.9 Chronic kidney disease, unspecified; R53.1 Weakness; Z93.3 Colostomy status; R62.7 Adult failure to thrive; E11.65 Type 2 diabetes mellitus with hyperglycemia; I12.9 Hypertensive chronic kidney disease with stage 1 through stage 4 chronic kidney disease, or unspecified chronic kidney disease; Z85.3 Personal history of malignant neoplasm of breast; L89.890 Pressure ulcer of other site, unstageable; L89.220 Pressure ulcer of left hip, unstageable; L89.210 Pressure ulcer of right hip, unstageable; R00.1 Bradycardia, unspecified
CPT/HCPCS: 36415; 36430; 71045; 80053; 81001; 82607; 82728; 82746; 83540; 83735; 84132; 84466; 85014; 85018; 85025; 86850; 86900; 86901; 86922; 87070; 87075; 87077; 87086; 87088; 87186; 87205; 93005; 93010; 94640; 97535; 99231; A4217; A4222; P9016; Q0177; J0696; J1815; J7620